=== PATIENT | male | born 1970 | race Two or more races ===

== ENCOUNTER 2025-04-27 13:38 | Emergency (ER) | payer OTHER ==
[2025-04-27 14:52] LABS: #Basophils 0.06 10x3/uL (0.0-0.2); #Eosinophils 0.44 10x3/uL (0.0-0.5); #Monocytes 0.78 10x3/uL (0.0-1.1); #Neutrophils 6.05 10x3/uL (1.5-8.4); %Basophils 0.7 % (0.0-2.0); %Eosinophils 4.8 % (0.0-6.0); %Lymphocytes 19.8 % (18.0-47.0); %Monocytes 8.5 % (0.0-10.0); %Neutrophils 66.0 % (40.0-75.0); Hematocrit 33.3 % (38.8-50.0); Hemoglobin 11.8 g/dL (13.5-17.5); Mean Corpuscular Hemoglobin 33.1 pg (27.0-33.0); Mean Corpuscular Volume 93.3 fL (81.2-95.1); Platelet Count 264 10x3/uL (150-450); Red Blood Cell (RBC) Count 3.57 10x6/uL (4.32-5.72); White Blood Cell (WBC) Count 9.17 10x3/uL (3.5-10.5)
[2025-04-27 15:17] LABS: ALT (SGPT) 32 U/L (Less than 45); AST (SGOT) 25 U/L (11-34); Albumin 4.2 g/dL (3.1-4.5); Alkaline Phosphatase 89 U/L (40-110); Anion Gap 17 mmol/L (10-20); BUN (Urea Nitrogen) 9 mg/dL (8.4-25.7); Bilirubin, Total 0.2 mg/dL (0.3-1.2); Calc. Creatinine Clearance 0 mL/min (70-130); Calcium 8.9 mg/dL (7.8-10.44); Carbon Dioxide 19 mmol/L (22-29); Chloride 108 mmol/L (98-107); Globulin 2.6 g/dL (2.4-3.5); Glucose 94 mg/dL (70-105); Potassium 4.3 mmol/L (3.5-5.1); Sodium 140 mmol/L (136-145)
[2025-04-27 15:23] LABS: Troponin I Less than 0.010 ng/mL (< 0.028)
[2025-04-27 17:58] LABS: Troponin I Less than 0.010 ng/mL (< 0.028)
[2025-04-27] MEDS ORDERED: Ondansetron PF 4 MG/2 ML Vial ONE (18:20)
[2025-04-27] MEDS ORDERED: Ketorolac Tromethamine 30 MG (1 mL) VIAL ONE (18:20)
== END 2025-04-27 18:27 | disposition home or self-care (01) ==
LOC: CSHERS 13:38 → EEVIPCON 13:38 → CSHERS 18:27
DX: R07.9 Chest pain, unspecified (principal); J44.9 Chronic obstructive pulmonary disease, unspecified; I25.10 Atherosclerotic heart disease of native coronary artery without angina pectoris; I10 Essential (primary) hypertension
CPT/HCPCS: 36415; 71045; 80053; 83880; 84484; 85025; 85379; 93005; 96374; 96375; J1885; J2270; J2405

== ENCOUNTER 2025-04-29 19:16 | Emergency (ER) | payer OTHER ==
[2025-04-29 20:11] LABS: #Basophils 0.05 10x3/uL (0.0-0.2); #Eosinophils 0.50 10x3/uL (0.0-0.5); #Monocytes 0.86 10x3/uL (0.0-1.1); #Neutrophils 8.10 10x3/uL (1.5-8.4); %Basophils 0.5 % (0.0-2.0); %Eosinophils 4.6 % (0.0-6.0); %Lymphocytes 11.8 % (18.0-47.0); %Monocytes 7.9 % (0.0-10.0); %Neutrophils 74.9 % (40.0-75.0); Hematocrit 32.8 % (38.8-50.0); Hemoglobin 11.4 g/dL (13.5-17.5); Mean Corpuscular Hemoglobin 32.5 pg (27.0-33.0); Mean Corpuscular Volume 93.4 fL (81.2-95.1); Platelet Count 225 10x3/uL (150-450); Red Blood Cell (RBC) Count 3.51 10x6/uL (4.32-5.72); White Blood Cell (WBC) Count 10.82 10x3/uL (3.5-10.5)
[2025-04-29 20:26] LABS: ALT (SGPT) 62 U/L (Less than 45); AST (SGOT) 37 U/L (11-34); Albumin 3.9 g/dL (3.1-4.5); Alkaline Phosphatase 96 U/L (40-110); Anion Gap 10 mmol/L (10-20); BUN (Urea Nitrogen) 11 mg/dL (8.4-25.7); Bilirubin, Total 0.3 mg/dL (0.3-1.2); Calc. Creatinine Clearance 0 mL/min (70-130); Calcium 8.5 mg/dL (7.8-10.44); Carbon Dioxide 26 mmol/L (22-29); Chloride 105 mmol/L (98-107); Globulin 2.4 g/dL (2.4-3.5); Glucose 108 mg/dL (70-105); Potassium 3.8 mmol/L (3.5-5.1); Sodium 137 mmol/L (136-145)
[2025-04-29 20:30] LABS: Troponin I Less than 0.010 ng/mL (< 0.028)
[2025-04-29 22:18] LABS: Troponin I 0.012 ng/mL (< 0.028)
[2025-04-29] MEDS ORDERED: Ondansetron PF 4 MG/2 ML Vial ONE (22:23)
[2025-04-29] MEDS ORDERED: Ketorolac Tromethamine 30 MG (1 mL) VIAL ONE (22:23)
== END 2025-04-29 23:37 ==
LOC: CSHERS 19:16
DX: J18.9 Pneumonia, unspecified organism (principal); R07.9 Chest pain, unspecified; I10 Essential (primary) hypertension; E78.5 Hyperlipidemia, unspecified; G40.909 Epilepsy, unspecified, not intractable, without status epilepticus; J44.9 Chronic obstructive pulmonary disease, unspecified; I25.10 Atherosclerotic heart disease of native coronary artery without angina pectoris; Z79.51 Long term (current) use of inhaled steroids; Z79.899 Other long term (current) drug therapy
CPT/HCPCS: 36415; 71045; 80053; 84484; 85025; 93005; 96374; 96375; J1885; J2405

== ENCOUNTER 2025-04-30 23:45 | Emergency (ER) | payer OTHER | END 2025-05-01 02:50 | disposition home or self-care (01) | LOC: CSHERS 23:45 → EEVIPCON 23:45 → CSHERS 05-01 02:50 | DX: H53.2 Diplopia (principal); F41.9 Anxiety disorder, unspecified; R29.700 NIHSS score 0; F20.9 Schizophrenia, unspecified; J44.9 Chronic obstructive pulmonary disease, unspecified; I25.10 Atherosclerotic heart disease of native coronary artery without angina pectoris; I10 Essential (primary) hypertension; E78.5 Hyperlipidemia, unspecified; Z79.51 Long term (current) use of inhaled steroids; Z79.899 Other long term (current) drug therapy | CPT/HCPCS: 70450; J2060 ==

== ENCOUNTER 2025-05-30 05:05 | Emergency (ER) | payer OTHER ==
[2025-05-30 05:27] LABS: #Basophils 0.08 10x3/uL (0.0-0.2); #Eosinophils 0.49 10x3/uL (0.0-0.5); #Monocytes 1.15 10x3/uL (0.0-1.1); #Neutrophils 6.93 10x3/uL (1.5-8.4); %Basophils 0.7 % (0.0-2.0); %Eosinophils 4.5 % (0.0-6.0); %Lymphocytes 19.6 % (18.0-47.0); %Monocytes 10.6 % (0.0-10.0); %Neutrophils 64.0 % (40.0-75.0); Hematocrit 33.8 % (38.8-50.0); Hemoglobin 11.9 g/dL (13.5-17.5); Mean Corpuscular Hemoglobin 33.0 pg (27.0-33.0); Mean Corpuscular Volume 93.6 fL (81.2-95.1); Platelet Count 406 10x3/uL (150-450); Red Blood Cell (RBC) Count 3.61 10x6/uL (4.32-5.72); White Blood Cell (WBC) Count 10.85 10x3/uL (3.5-10.5)
[2025-05-30 05:49] LABS: ALT (SGPT) 76 U/L (Less than 45); AST (SGOT) 45 U/L (11-34); Albumin 4.0 g/dL (3.1-4.5); Alkaline Phosphatase 125 U/L (40-110); Anion Gap 13 mmol/L (10-20); BUN (Urea Nitrogen) 8 mg/dL (8.4-25.7); Bilirubin, Total 0.3 mg/dL (0.3-1.2); Calc. Creatinine Clearance 0 mL/min (70-130); Calcium 9.2 mg/dL (7.8-10.44); Carbon Dioxide 28 mmol/L (22-29); Chloride 99 mmol/L (98-107); Globulin 3.0 g/dL (2.4-3.5); Glucose 113 mg/dL (70-105); Potassium 4.0 mmol/L (3.5-5.1); Sodium 136 mmol/L (136-145)
[2025-05-30 05:55] LABS: Troponin I Less than 0.010 ng/mL (< 0.028)
[2025-05-30 08:49] LABS: Troponin I 0.013 ng/mL (< 0.028)
== END 2025-05-30 09:03 | disposition home or self-care (01) ==
LOC: CSHERS 05:05 → EEVIPCON 05:05 → CSHERS 09:03
DX: R07.89 Other chest pain (principal); I25.10 Atherosclerotic heart disease of native coronary artery without angina pectoris; J44.9 Chronic obstructive pulmonary disease, unspecified; E78.5 Hyperlipidemia, unspecified; I10 Essential (primary) hypertension; Z79.51 Long term (current) use of inhaled steroids; Z79.899 Other long term (current) drug therapy
CPT/HCPCS: 36415; 71045; 80053; 84484; 85025; 93005

== ENCOUNTER 2025-06-08 21:42 | Emergency (ER) | payer OTHER ==
[2025-06-08 22:31] LABS: #Basophils 0.09 10x3/uL (0.0-0.2); #Eosinophils 0.83 10x3/uL (0.0-0.5); #Monocytes 1.02 10x3/uL (0.0-1.1); #Neutrophils 3.82 10x3/uL (1.5-8.4); %Basophils 1.0 % (0.0-2.0); %Eosinophils 9.4 % (0.0-6.0); %Lymphocytes 34.8 % (18.0-47.0); %Monocytes 11.5 % (0.0-10.0); %Neutrophils 43.1 % (40.0-75.0); Hematocrit 34.3 % (38.8-50.0); Hemoglobin 11.7 g/dL (13.5-17.5); Mean Corpuscular Hemoglobin 32.3 pg (27.0-33.0); Mean Corpuscular Volume 94.8 fL (81.2-95.1); Platelet Count 315 10x3/uL (150-450); Red Blood Cell (RBC) Count 3.62 10x6/uL (4.32-5.72); White Blood Cell (WBC) Count 8.86 10x3/uL (3.5-10.5)
[2025-06-08 22:48] LABS: ALT (SGPT) 29 U/L (Less than 45); AST (SGOT) 30 U/L (11-34); Albumin 3.9 g/dL (3.1-4.5); Alkaline Phosphatase 100 U/L (40-110); Anion Gap 12 mmol/L (10-20); BUN (Urea Nitrogen) 18 mg/dL (8.4-25.7); Bilirubin, Total 0.3 mg/dL (0.3-1.2); Calc. Creatinine Clearance 0 mL/min (70-130); Calcium 9.0 mg/dL (7.8-10.44); Carbon Dioxide 25 mmol/L (22-29); Chloride 102 mmol/L (98-107); Globulin 3.0 g/dL (2.4-3.5); Glucose 99 mg/dL (70-105); Potassium 3.8 mmol/L (3.5-5.1); Sodium 135 mmol/L (136-145)
== END 2025-06-09 01:38 | disposition short-term general hospital (02) ==
LOC: CSHERS 21:42 → EEVIPCON 21:42 → CSHERS 06-09 01:38
DX: S32.10XA Unspecified fracture of sacrum, initial encounter for closed fracture (principal); H53.2 Diplopia; I25.10 Atherosclerotic heart disease of native coronary artery without angina pectoris; E78.5 Hyperlipidemia, unspecified; I10 Essential (primary) hypertension; J44.9 Chronic obstructive pulmonary disease, unspecified; Z79.51 Long term (current) use of inhaled steroids; Z79.899 Other long term (current) drug therapy; W01.10XA Fall on same level from slipping, tripping and stumbling with subsequent striking against unspecified object, initial encounter
CPT/HCPCS: 36415; 70450; 72170; 74176; 76376; 80053; 85025; 96374